=== PATIENT | female | born 1990 | race Caucasian/White ===

== ENCOUNTER 2018-03-23 20:17 | Outpatient (CLI) | END 2018-03-23 23:50 | disposition home or self-care (01) ==

== ENCOUNTER 2018-06-26 19:55 | Inpatient (IN) | payer OTHER ==
[~2018-06-26] VITALS: Ht 157.5 cm; Wt 95.1 kg
[~2018-06-26 19:55] MED LIST: FERR256T PO; PREN1TAB91 PO
[2018-06-26 20:04] VITALS: Ht 157.5 cm; Wt 95.1 kg
[2018-06-26 20:33] VITALS: BP 122/79; PULSE 95; RESP 18
[2018-06-26] MEDS: LACTATED RINGER'S 1,000 ML IV SCH (21:50)
[2018-06-26] MEDS ORDERED: MISOPROSTOL 200 MCG TAB PR PRN (22:00)
[2018-06-26] MEDS ORDERED: OXYTOCIN 30 UNITS/LR 500 ML IV PRN (22:00)
[2018-06-26] MEDS ORDERED: OXYTOCIN 30 UNITS/LR 500 ML IV SCH ×3 (22:00)
[2018-06-26] MEDS ORDERED: METHYLERGONOVINE 0.2 MG INJ IM PRN (22:00)
[2018-06-26] MEDS ORDERED: CARBOPROST 250 MCG INJ IM PRN (22:00)
[2018-06-26] MEDS ORDERED: BUTORPHANOL 1 MG INJ IV PRN (22:00)
[2018-06-26] MEDS ORDERED: LIDOCAINE 1% (MPF) 30 ML INJ INJ PRN (22:00)
[2018-06-26] MEDS ORDERED: BUTORPHANOL 2 MG INJ IV PRN (22:00)
--- NOTE | 2018-06-26 23:44 | HP ---
Date/Time of Note Date/Time of Note DATE: 06/26/18 TIME: 23:24 OB - History Hx of Present Free Text/Dictation 28 y.0o here for induction of labor due to low JEET-A at 39w3d , Her care was initiated at 8weeks ,was unevenful except low JEET-A. last antepartum test was done 06/23/18 was nl. GBS neg EFM CAT I VE ftp/30%/-3 , no evidence of leaking fluid admitted for indution of labor by cytotec to start with. Chief Complaint: IOL Estimated Due Date: Jun 29, 2018 : 4 Para: 1 Spontaneous : 1 Therapeutic : 1 Care: Good Care Ultrasounds: Normal mid trimester US Obstetrical Complications: None Medical Complications: None Other Concerns: low JEET-A Past Family/Social History * Past Medical, Surgical, Family and Obstetric Histories reviewed from chart. Blood Type: O+ Rubella: immune RPR/VDRL: Negative GBS Status: Negative HBsAG: Negative OB Admission Exam Vital Signs Vital Signs Vital Signs Date Temp Pulse Resp B/P (MAP) Pulse Ox O2 O2 Flow FiO2 Time Delivery Rate 06/26/18 98.5 95 18 122/79 Room Air 20:33 (93) Physical Exam HEENT: WNL Heart: Rhythm Normal Lungs: Clear, Equal Abdomen: WNL Extremities: Normal Reflexes: Normal Cervical Dilatation: Fingertip Effacement: 25% Station: -3 Membranes: Intact Amniotic Fluid: Unevaluable Heart Rate: 140's Accelerations: Accelerations Present Decelerations: No Decelerations Varibility: Moderate Contractions on Admission: None Last 72 hours Lab Results CBC & BMP 06/26/18 20:55 OB Assessment/Plan Reason for admission: induction of labor Other Assessment: IUP 39w3d Plan: Induction Induction Method: per Misoprostol Protocol RAVI JAMES MD Jun 26, 2018 23:41
[2018-06-27] MEDS: MISOPROSTOL 50 MCG CAPSULE PO PRN ×2 (00:17→04:21)
[2018-06-27] MEDS: LACTATED RINGER'S 1,000 ML IV SCH ×4 (04:21→23:47)
[2018-06-27] MEDS ORDERED: OXYTOCIN 30 UNITS/LR 500 ML IV SCH (11:30)
--- NOTE | 2018-06-27 14:26 | QN ---
Documentation Comment NST reassuring 1 cm 70% -3 On Pitocin EFW 3400 gr EMELINA VARMA MD Jun 27, 2018 14:26
--- NOTE | 2018-06-27 21:51 | NSTRPT ---
NST Information Datetime Report Generated by CPN: 06/27/2018 21:51 Datetime: 06/23/2018 14:13 NST Information EGA: 39.1 NST Duration (Min): 25 Datetime: 06/21/2018 09:39 NST Information EGA: 38.6 NST Duration (Min): 37 Electronically Signed By E-Signature: with User ID: [id number] Datetime: 05/31/2018 09:13 NST Information EGA: 35.6 NST Duration (Min): 23 Datetime: 05/27/2018 09:16 NST Information EGA: 35.2 NST Duration (Min): 22 Datetime: 05/24/2018 14:30 NST Information EGA: 34.6 NST Duration (Min): 25
--- NOTE | 2018-06-27 22:18 | PREAC ---
Date/Time of Note Date/Time of Note DATE: 06/27/18 TIME: 22:18 Anesthesia Eval and Record Evaluation Time Pre-Procedure Interview DATE: 06/27/18 TIME: 22:18 Age 28 Sex female NPO: 8 hrs Preoperative diagnosis labor pain Planned procedure labor epidural Past Medical History Past Medical History: None Surgery & Anesthesia Issues No known issue Meds Anticoagulation: No Beta Sam within 24 hr: No Reason Beta Sam not given: Pt. not on B-Sam Reported Medications Ferrous Gluconate (Iron) 256 Mg Tablet, 256 MG PO DAILY, TAB 03/23/18 Pnv95/Ferrous Fumarate/FA ( Formula Tablet) 1 Each Tablet, 1 EACH PO DAILY, TAB 03/23/18 Current Medications Lactated Ringer's 1,000 ml @ 125 mls/hr Q8H IV Last administered on 06/27/18at 20:24; Admin Dose 125 MLS/HR; Start 06/26/18 at 21:33 Butorphanol Tartrate (Stadol) 1 mg Q2H PRN IV .PAIN; Start 06/26/18 at 22:00 Butorphanol Tartrate (Stadol) 2 mg Q2H PRN IV .PAIN Last administered on 06/27/18at 17:24; Admin Dose 2 MG; Start 06/26/18 at 22:00 Lidocaine (Xylocaine 1% (Mpf)) 30 ml ONCE PRN INJ .EPISIOTOMY; Start 06/26/18 at 22:00 Oxytocin/Lactated Ringer's 500 ml @ 500 mls/hr ONCE POST IV ; Start 06/26/18 at 22:00 Oxytocin/Lactated Ringer's 500 ml @ 125 mls/hr POST IV ; Start 06/26/18 at 22:00 Oxytocin/Lactated Ringer's 500 ml @ 0 mls/hr ONCE PRN IV .VAGINAL BLEEDING; Start 06/26/18 at 22:00 Methylergonovine Maleate (Methergine) 0.2 mg ONCE PRN IM .VAGINAL BLEEDING; Start 06/26/18 at 22:00 Carboprost Tromethamine (Hemabate) 250 mcg ONCE PRN IM .VAGINAL BLEEDING; Start 06/26/18 at 22:00 Misoprostol (Cytotec) 1,000 mcg ONCE PRN CO .VAGINAL BLEEDING; Start 06/26/18 at 22:00 Misoprostol (Cytotec 50 Mcg Capsule) 50 mcg Q4 PRN PO CERVICAL RIPENING Last administered on 06/27/18at 04:21; Admin Dose 50 MCG; Start 06/26/18 at 22:00 Oxytocin/Lactated Ringer's 500 ml @ 0 mls/hr FOR INDUCTION IV ; Start 06/26/18 at 22:00 Oxytocin/Lactated Ringer's 500 ml @ 0 mls/hr Q0M IV Last administered on 06/27/18at 12:00; Admin Dose 1 MLS/HR; Start 06/27/18 at 11:30 Meds reviewed: Yes Allergies Coded Allergies: bacitracin (Verified Allergy, Mild, 06/26/18) neomycin (Verified Allergy, Mild, 06/26/18) polymyxin B (Verified Allergy, Mild, 06/26/18) Allergies Reviewed: Yes Labs/Studies Labs Reviewed: Reviewed by anesthesiologist Result Diagram: 06/26/182054 test: Positive Pre-procedure Exam Last vitals Vital Signs Date Temp Pulse Resp B/P (MAP) Pulse Ox O2 O2 Flow FiO2 Time Delivery Rate 06/26/18 98.5 95 18 122/79 Room Air 20:33 (93) Airway: Adequate mouth opening, Adequate thyromental dist Mallampati: Mallampati III Teeth: Normal Lung: Normal Heart: Normal ASA Physical Status ASA physical status: 2 Emergency: None Planned Anesthetic Neuraxial: Epidural Planned Pain Management Epidural, Parenteral pain med, Other neuraxial med Pre-operative Attestations Prior to commencing anesthesia and surgery, the patient was re-evaluated, there was verification of: *The patient's identity *The results of appropriate recent lab work and preoperative vital signs *The above evaluation not changing prior to induction *Anesthetic plan, risk benefits, alternative and complications discussed with patient/family; questions answered; patient/family understands, accepts and wishes to proceed. VIRAJ ALEXIS MD Jun 27, 2018 22:18
[2018-06-27] MEDS ORDERED: NALOXONE (0.4 MG/ML) INJ IV PRN (22:30)
[2018-06-27] MEDS ORDERED: ZOLPIDEM 5 MG TAB PO PRN (22:30)
[2018-06-27] MEDS ORDERED: DIPHENHYDRAMINE 50 MG INJ IV PRN (22:30)
[2018-06-27] MEDS ORDERED: KETOROLAC 30 MG INJ IV PRN (22:30)
[2018-06-27] MEDS ORDERED: ONDANSETRON 4 MG INJ IV PRN (22:30)
[2018-06-27] MEDS ORDERED: FENTAnyl 2MCG/ML-ROPIV 0.2% 100 ML BAG EPI SCH (22:30)
[2018-06-27] MEDS ORDERED: HYDROmorphONE 0.5 MG/0.5 ML SYG IV PRN ×2 (22:30)
[2018-06-28] MEDS ORDERED: LIDOCAINE 1.5%/EPI MPF (SDV) 30 ML VIAL ONE (07:00)
[2018-06-28] MEDS ORDERED: OXYTOCIN 30 UNITS/LR 500 ML BAG IV ONE (07:00)
[2018-06-28] MEDS: LACTATED RINGER'S 1,000 ML IV SCH ×3 (07:00→23:35)
[2018-06-28] MEDS ORDERED: AZITHROMYCIN 500MG/NS (PMX) 250 ML IVPB ONE (14:30)
[2018-06-28] MEDS ORDERED: CEFAZOLIN 2 GM/50 ML (PMX) 50 ML IVPB ONE (14:30)
[2018-06-28] MEDS ORDERED: LACTATED RINGER'S 1,000 ML IV SCH (15:01)
--- NOTE | 2018-06-28 15:01 | HP ---
Date/Time of Note Date/Time of Note DATE: 06/28/18 TIME: 14:57 OB - History Hx of Present Free Text/Dictation 28 y.0o here for induction of labor due to low JEET-A at 39w5d , she progressed to 9.5 cm. I tried pushing and reducing cervix, but she refuses to push any more and she would like to proceed with delivery. she also developed fever and tachycardia. I discussed with the patient the risks, benefits, indications, and alternatives of delivery including but not limited to risks of infection, bleeding, damage to other organs, bowel, bladder, hernia formation, scar formation, possibility of blood transfusion, possible need for emergency hysterectomy. She was allowed to ask questions. All her questions were answered. Informed consent has been obtained. Care: Good Care Ultrasounds: Normal mid trimester US Obstetrical Complications: Other (Low JEET-A) Medical Complications: None Past Family/Social History * Past Medical, Surgical, Family and Obstetric Histories reviewed from chart. OB Admission Exam Vital Signs Vital Signs Vital Signs Date Temp Pulse Resp B/P (MAP) Pulse Ox O2 O2 Flow FiO2 Time Delivery Rate 06/26/18 98.5 95 18 122/79 Room Air 20:33 (93) Physical Exam HEENT: WNL Heart: Rhythm Normal Lungs: Clear, Equal Abdomen: WNL Extremities: Normal Reflexes: Normal Cervical Dilatation: other (9.5 cm) Effacement: 100% Station: -2 Last 72 hours Lab Results CBC & BMP 06/26/18 20:55 OB Assessment/Plan Other Assessment: failure to progress possible Chorioamnionitis due to fever and tachycardia category 2 NST Plan: Section EMELINA VARMA MD Jun 28, 2018 15:01
[2018-06-28] MEDS ORDERED: FENTAnyl 50 MCG/ML VIAL ONE (15:03)
[2018-06-28] MEDS ORDERED: DEXAMETHASONE 4 MG/ML 1 ML INJ ONE (15:12)
[2018-06-28] MEDS ORDERED: NA BICARB 50 MEQ/50 ML VIAL ONE (15:12)
[2018-06-28] MEDS ORDERED: morphine SULFATE/PF (10 MG/10 ML) INJ ONE (15:17)
[2018-06-28] MEDS ORDERED: OXYCODONE/ACETAMINOPHEN (5/325) TAB PO PRN (15:30)
[2018-06-28] MEDS ORDERED: LANOLIN HPA 1 PKT TOP PRN (15:30)
[2018-06-28] MEDS ORDERED: NA PHOSPHATE/BIPHOS 133 ML ENEMA PR PRN (15:30)
[2018-06-28] MEDS ORDERED: MISOPROSTOL 200 MCG TAB PR PRN (15:30)
[2018-06-28] MEDS ORDERED: HYDROmorphONE 0.5 MG/0.5 ML SYG IV PRN ×2 (16:00)
[2018-06-28] MEDS ORDERED: NALOXONE (0.4 MG/ML) INJ IV PRN (16:00)
[2018-06-28] MEDS ORDERED: ZOLPIDEM 5 MG TAB PO PRN (16:00)
[2018-06-28] MEDS ORDERED: ONDANSETRON 4 MG INJ IV PRN (16:00)
[2018-06-28] MEDS ORDERED: DIPHENHYDRAMINE 50 MG INJ IV PRN (16:00)
--- NOTE | 2018-06-28 16:17 | OPR ---
Date/Time of Note Date/Time of Note DATE: 06/28/18 TIME: 16:14 Operative Report Procedure Date: Jun 28, 2018 Preoperative Diagnosis Failure to progress Chorioamnionitis Postoperative Diagnosis Same Operation/Procedure Performed Primary Delivery Surgeon Dustin Winn MD Cargo Trimmer John Kelly MD Anesthesia Type: spinal Estimated Blood Loss: other (700) Transfusion none Specimen Placenta Grafts/Implants none Tubes/Drains Terrell Cath Complications none Pt Condition Post Procedure: stable Disposition: PACU Procedure Description The risks, benefits, indications, alternatives of procedure including, but not limited to risk of infection, bleeding, damage to other organs, bowel, bladder, hernia formation, scar formation, possibility of blood transfusions were discussed with the patient. She was allowed to ask questions. All her questions were answered. Informed consent was obtained. DESCRIPTION OF PROCEDURE: She was taken to the operating room. Spinal anesthesia was induced. She was prepped and draped in the usual sterile fashion. Surgical time out one. Anesthesia was tested to be adequate. With permission from anesthesiologist, a knife was used to make a Pfannenstiel skin incision. The incision was taken down in layers. The fascia was cut, undermined and from the underlying muscle using sharp and blunt dissection. All the bleeders were cauterized. Peritoneum was entered bluntly. A low transverse incision was developed over the uterus. Amniotic fluid was clear and adequate. A viable in vertex presentation was delivered without any difficulty. The cord was clamped and cut, handed to awaiting team. Placenta was then delivered. Uterus was exteriorized, wrapped around a moist lap. Inside uterus was cleaned using a dry lap. All residual membranes were removed. The uterine incision was then closed using #1 Monocryl in 2 layers. The uterus was inserted back inside the abdominal cavity. Irrigation was done carefully. Careful evaluation of the uterine incision revealed no further bleeding. The peritoneum and rectus muscles and fascia were evaluated. All bleeders cauterized. Peritoneum was closed using 2-0 Monocryl. At this time, the count was correct. Rectus muscle was reapproximated using 2-0 Monocryl. Rectus fascia was closed using #1 Vicryl. Subcutaneous tissue was cleaned and irrigated. All bleeders cauterized and the skin closed using Insorb. All counts correct. DUSTIN WINN MD Jun 28, 2018 16:17
[2018-06-28] MEDS: PIPER-TAZO 3.375 GM IV (PMX) 100 ML IVPB SCH ×2 (17:40→23:36)
[2018-06-28 19:00] VITALS: BP 110/66; PULSE 79; RESP 18
[2018-06-28] MEDS: SENNA/DOCUSATE NA (8.6MG/50MG) TAB PO SCH (21:42)
--- NOTE | 2018-06-28 21:59 | PAC ---
Date/Time of Note Date/Time of Note DATE: 06/28/18 TIME: 21:58 Post-Anesthesia Notes Post-Anesthesia Note Last documented vital signs Vital Signs Date Temp Pulse Resp B/P (MAP) Pulse Ox O2 O2 Flow FiO2 Time Delivery Rate 06/28/18 97.5 79 18 110/66 97 Room Air 21:00 (81) Activity: WNL Respiratory function: WNL Cardiovascular function: WNL Mental status: Baseline Pain reasonably controlled: Yes Hydration appropriate: Yes Nausea/Vomiting absent: Yes CHAVA LLOYD Jun 28, 2018 21:59
[2018-06-28] MEDS: KETOROLAC 30 MG INJ IV PRN (23:36)
[2018-06-29] MEDS: KETOROLAC 30 MG INJ IV PRN ×2 (05:17→15:05)
[2018-06-29] MEDS: PIPER-TAZO 3.375 GM IV (PMX) 100 ML IVPB SCH ×4 (05:53→23:31)
[2018-06-29 07:30] VITALS: BP 103/57; PULSE 72; RESP 18
[2018-06-29] MEDS: LACTATED RINGER'S 1,000 ML IV SCH ×3 (10:44→23:00)
[2018-06-29] MEDS: SENNA/DOCUSATE NA (8.6MG/50MG) TAB PO SCH ×2 (10:51→20:57)
--- NOTE | 2018-06-29 11:45 | QN ---
Documentation Comment s/p c/s Subjective: no complaint Objective: Afebrile, VSS NAD A&O Abdomen: soft, appropriate tender Incision: no sign of bleeding/infection mild lochia Extremity: 1+ edema bilaterally Assessment: S/p C/S. POD # 1 Recovering Well Plan: current care EMELINA VARMA MD Jun 29, 2018 11:45
[2018-06-29 12:00] VITALS: BP 99/76; PULSE 76; RESP 16
[2018-06-29 16:04] VITALS: BP 98/55; PULSE 83; RESP 18
[2018-06-29] MEDS: IBUPROFEN 600 MG TAB PO SCH ×2 (17:52→23:31)
[2018-06-29 19:30] VITALS: BP 105/55; PULSE 79
[2018-06-30 03:51] VITALS: BP 110/63; PULSE 67; RESP 18
[2018-06-30] MEDS: IBUPROFEN 600 MG TAB PO SCH ×3 (05:31→18:05)
[2018-06-30] MEDS: PIPER-TAZO 3.375 GM IV (PMX) 100 ML IVPB SCH ×3 (05:31→18:06)
--- NOTE | 2018-06-30 06:12 | QN ---
Documentation Comment s/p c/s Subjective: no complaint Objective: Afebrile, VSS NAD A&O Abdomen: soft, appropriate tender Incision: no sign of bleeding/infection mild lochia Extremity: 1+ edema bilaterally Assessment: S/p C/S. POD # 2 Recovering Well Plan: current care EMELINA VARMA MD Jun 30, 2018 06:12
[2018-06-30] MEDS: LACTATED RINGER'S 1,000 ML IV SCH ×2 (07:00→15:00)
[2018-06-30 08:00] VITALS: BP 91/45; PULSE 89; RESP 16
--- NOTE | 2018-06-30 08:56 | OPPN ---
Date/Time of Note Date/Time of Note DATE: 06/30/18 TIME: 08:55 Anesthesia Follow up Anesthesia Follow up Last documented vital signs Vital Signs Date Temp Pulse Resp B/P (MAP) Pulse Ox O2 O2 Flow FiO2 Time Delivery Rate 06/30/18 97.9 67 18 110/63 Room Air 03:51 (79) 06/28/18 97 19:00 Respiratory function: WNL Cardiovascular function: WNL Comments satisfactory pain management with intrathecal morphine. no complications CHAVA LLOYD Jun 30, 2018 08:56
[2018-06-30] MEDS: SENNA/DOCUSATE NA (8.6MG/50MG) TAB PO SCH ×2 (09:04→20:41)
[2018-06-30 15:50] VITALS: BP 121/76; PULSE 76; RESP 20
[2018-06-30 20:00] VITALS: BP 123/84; PULSE 87; RESP 20
[2018-06-30] MEDS: OXYCODONE/ACETAMINOPHEN (5/325) TAB PO PRN (20:41)
[2018-07-01] MEDS: PIPER-TAZO 3.375 GM IV (PMX) 100 ML IVPB SCH ×2 (01:00→06:06)
[2018-07-01] MEDS: IBUPROFEN 600 MG TAB PO SCH ×2 (01:01→06:06)
[2018-07-01 04:00] VITALS: BP 103/58; PULSE 80; RESP 18
[2018-07-01] MEDS: OXYCODONE/ACETAMINOPHEN (5/325) TAB PO PRN (07:03)
[2018-07-01 08:00] VITALS: BP 124/71; PULSE 86; RESP 16
--- NOTE | 2018-07-01 08:36 | DS ---
Date/Time of Note Date/Time of Note DATE: 07/01/18 TIME: 08:32 Obstetrical Discharge Record Final Diagnosis Final Diagnosis: Term delivered Other Final Diagnosis IOL done due to abnormal marker. progressed to 10 cm, but had arrest of descent. developed fever, non reassuring FHTs. post op she did well. was treated with IV Abx. she remained afebrile, tolerating regular diet, ambulating well and good pain control on oral pain meds. Section Section: Primary Primary Indication failure to progress and non reassuring FHTs Complications Augmentation: Yes Induction: Yes Rupture of Membranes: No Condition on Discharge Physical Assessment Voiding: Yes Bowel Movement: Yes Breast: Soft, non-tender, Filling Fundus: Firm Abdomen and Incision: soft, appropriate tender. incision is covered Calf Tenderness: No Patient Condition: Good EMELINA VARMA MD Jul 01, 2018 08:36
[2018-07-01] MEDS ORDERED: MEASLES,MUMPS,RUBELLA VACCINE INJ SC* ONE (09:00)
[2018-07-01] MEDS ORDERED: DIPHTH/TET/ACEL PERTUSS (ADULT) 0.5 ML VIAL IM* ONE (09:00)
--- NOTE | 2018-07-02 14:11 | DELSUM ---
Delivery Summary A-C Datetime Report Generated by CPN: 07/02/2018 14:11 DELIVERY PERSONNEL Integrity Director: Vicki Montes MATERNAL INFORMATION Delivery Anesthesia: Spinal Medications in Delivery: LR W/ 30 UNITS PITOCIN Delivery QBL (ml): 859 Placenta Cultured: No Maternal Complications: Maternal Fever Other Maternal Complications: Low JEET-A LABOR SUMMARY EDC: 06/29/2018 00:00 No. Babies in Womb: 1 Attempted: No Labor Anesthesia: Epidural LABOR INFORMATION Reason for Induction: Other Reason for Induction- Other: LOW JEET-A Onset of Labor: 06/27/2018 00:17 Complete Dilatation: 06/28/2018 14:29 Cervical Ripening Agents: Cytotec @ Oxytocin: Induction Group B Beta Strep: Negative Antibiotics # of Doses: 0 Steroids Given: None Reason Steroids Not Administered: Not Applicable MEMBRANES Membranes Rupture Method: Artificial Rupture of Membranes: 06/28/2018 08:12 Length of Rupture (hr): 7.43 Amniotic Fluid Color: Clear Amniotic Fluid Amount: Moderate Amniotic Fluid Odor: None STAGES OF LABOR Stage 1 hr: 38 Stage 1 min: 12 Stage 2 hr: 1 Stage 2 min: 9 Stage 3 hr: 0 Stage 3 min: 1 Total Time in Labor hr: 39 Total Time in Labor min: 22 CSECTION DELIVERY Primary Indication: Nonreassuring Stat Secondary Indication: N/A CSection Urgency: Emergency CSection Incidence: Primary Labor: Labor Elective: Nonelective CSection Incision: Lower Uterine Transverse BABY A INFORMATION Infant Delivery Date/Time: 06/28/2018 15:38 Method of Delivery: Born in Route : No : N/A Forceps: N/A Vacuum Extraction: N/A Shoulder Dystocia : N/A SHOULDER DYSTOCIA BABY A Infant Delivery Date/Time: 06/28/2018 15:38 PRESENTATION/POSITION BABY A Presentation: Cephalic Cephalic Presentation: Vertex Breech Presentation: N/A PLACENTA INFORMATION BABY A Placenta Delivery Time : 06/28/2018 15:39 Placenta Method of Delivery: Manual Removal Placenta Status: Delivered SCORES BABY A Heart Rate 1 min: >100 bpm Resp Effort 1 min: Good Cry Reflex Irritability 1 min: Cough/Sneeze/Pulls Away Muscle Tone 1 min: Some Flexion of Extrem Color 1 min: Body [place], Extremit Blue Resuscitation Effort 1 min: Tactile Stimulation SCORE 1 MIN: 8 Heart Rate 5 min: >100 bpm Resp Effort 5 min: Good Cry Reflex Irritability 5 min: Cough/Sneeze/Pulls Away Muscle Tone 5 min: Active Motion Color 5 min: Body [place], Extremit Blue Resuscitation Effort 5 min: Tactile Stimulation SCORE 5 MIN: 9 INFANT INFORMATION BABY A Gestational Age at Delivery: 39.6 Gestational Status: Full Term- 39- 40.6 Weeks Outcome : Liveborn Infant Condition : Stable Sex: Female IDENTIFICATION/MEDS BABY A ID Band Number: [id number] ID Band Location: Right Leg; Left Arm Sensor Applied: Yes Sensor Number: [id number] Sensor Location : Cord Clamp Vitamin K Given : Not Given Erythromycin Given: Not Given WEIGHT/LENGTH BABY A Infant Birthweight (gm): 3080 Weight (lb): 6 Infant Weight (oz): 13 Length (in): 20.25 Infant Length (cm): 51.44 CORD INFORMATION BABY A No. Cord Vessels: 3 Nuchal Cord : N/A Cord Blood Taken: Yes Suction: Mouth; Nose ASSESSMENT BABY A Infant Complications: Extended Tachycardi Physical Findings at Delivery: Within Normal Limits Respirations: Appears Normal Hand Braille Transcriber/ALS Called : Yes Care By: RT/RN Transferred To: Remains with Mother
== END 2018-07-01 14:11 | disposition home or self-care (01) | DRG 788 ==
LOC: L-D 19:55 → PP1 06-28 18:46
PROVIDERS: ADMIT Specialist; ATTEND Specialist
PROC: 10D00Z1 Extraction of Products of Conception, Low, Open Approach (ICD-10-PCS; principal; 2018-06-27)
DX: O41.1230 Chorioamnionitis, third trimester, not applicable or unspecified (principal); O62.0 Primary inadequate contractions; O76 Abnormality in fetal heart rate and rhythm complicating labor and delivery; Z3A.39 39 weeks gestation of pregnancy; Z37.0 Single live birth
CPT/HCPCS: 36415; 36600; 76815; 82803; 85025; 85610; 85730; 86592; 86850; 86900; 86901; 87340; 88307; J0456; J0595; J0690; J1100; J1200; J1885; J2274; J2405; J2543; J2590; J3010; J7120